=== PATIENT | male | born 1955 ===

== ENCOUNTER 2018-06-03 10:53 | Inpatient (IN) | payer OTHER ==
[~2018-06-03 10:53] MED LIST: Iopamidol 370 76% 100 ML VIAL ONE; Iopamidol 370 76% 50 ML VIAL FS ONE
[2018-06-03] MEDS ORDERED: Heparin 10,000 UNITS/1 ML VIAL ONE (11:00)
[2018-06-03] MEDS ORDERED: Lidocaine 1% (PF) 30 ML VIAL ONE (11:00)
[2018-06-03] MEDS ORDERED: Heparin 5,000 UNITS/ML VIAL ONE (11:05)
[2018-06-03 11:21] LABS: #Basophils 0.1 thou/uL (0.0-0.2); #Eosinphils 0.3 thou/uL (0.0-0.7); #Lymphocytes 2.3 thou/uL (1.20-3.40); #Monocytes 0.4 thou/uL (0.11-0.59); #Neutrophils 3.3 thou/uL (1.40-6.50); %Eosinophils 4.1 % (0.0-10.0); %Lymphocytes 36.4 % (21.0-51.0); %Monocytes 5.8 % (0.0-10.0); %Neutrophils 52.8 % (42.0-75.0); Hemoglobin 14.2 g/dL (14.0-18.0); Mean Corpuscular HGB CONC 34.4 g/dL (32.0-36.0); Mean Corpuscular Hemoglobin 28.1 pg (27.0-31.0); Mean Corpuscular Volume 81.7 fL (78.0-98.0); Mean Platelet Volume 8.2 fL (7.4-10.4); Platelet Count 218 thou/uL (130-400); RBC Distribution Width 12.7 % (11.5-14.5); Red Blood Cell (RBC) Count 5.03 mill/uL (4.70-6.10); White Blood Cell (WBC) Count 6.3 thou/uL (4.8-10.8)
[2018-06-03] MEDS ORDERED: Fentanyl 100 MCG/2 ML VIAL ONE (11:22)
[2018-06-03] MEDS ORDERED: Midazolam HCl 2 mg/2 ml Vial ONE (11:22)
[2018-06-03 11:23] LABS: INR-International Normal Ratio 0.9; PTT 27.2 SEC (22.9-36.1); Prothrombin Time 12.6 SEC (12.0-14.7)
--- NOTE | 2018-06-03 11:33 | RAD ---
PORTABLE CHEST 1 VIEW: Date: Time: 1053 hours HISTORY: Chest pain, myocardial infarction. FINDINGS/IMPRESSION: The heart size is borderline. The lungs are well expanded with mild prominence of the pulmonary vascu larity. No lobar consolidation, pneumothorax, or large effusions are seen. POS: [facility]
[2018-06-03 11:38] LABS: ALT (SGPT) 133 U/L (8-55); AST (SGOT) 77 U/L (5-34); Albumin 4.1 g/dL (3.4-4.8); Alkaline Phosphatase 76 U/L (40-150); Anion Gap 14 mmol/L (10-20); BUN (Urea Nitrogen) 13 mg/dL (8.4-25.7); Bilirubin, Total 0.4 mg/dL (0.2-1.2); Calc. Creatinine Clearance 0 mL/min (70-130); Calcium 9.1 mg/dL (7.8-10.44); Carbon Dioxide 22 mmol/L (23-31); Chloride 106 mmol/L (98-107); Estimated GFR-MDRD 73; Glucose 197 mg/dL (80-115); Potassium 3.6 mmol/L (3.5-5.1); Protein, Total 7.1 g/dL (5.8-8.1); Sodium 138 mmol/L (136-145)
[2018-06-03 11:40] LABS: CKMB 3.6 ng/mL (0-6.6); Troponin I 0.031 ng/mL (< 0.028)
[2018-06-03] MEDS ORDERED: Nitroglycerin 0.4 MG TAB (25 Tab Bottle) SL PRN (11:55)
[2018-06-03] MEDS ORDERED: Acetaminophen/Codeine 30-300mg Tablet PO PRN ×2 (11:55)
[2018-06-03] MEDS ORDERED: traMADol HCl 50 MG TAB PO PRN (11:55)
[2018-06-03] MEDS ORDERED: Heparin 25,000 units/D5W 500 ML ONE (11:56)
[2018-06-03] MEDS ORDERED: Sodium Chloride 0.9% 1,000 ML IV SCH (12:00)
[2018-06-03] MEDS ORDERED: Sodium Chloride 0.9% 200 ML IV SCH (12:00)
--- NOTE | 2018-06-03 12:01 | HP ---
HISTORY: Mr. Mike Cabral is a 62-year-old male who apparently does not have any previous cardiac history. He apparently had chest discomfort and paramedics were called. I am uncertain exactly where he is from at this time, but the helicopter was called to [place] to meet the paramedics. When paramedics arrived, initial EKG showed 3-[address] segment elevation in II , III, V5 through V6 along with reciprocal changes in the other leads, consistent with inferolateral myocardial infarction. Apparently, he had some type of arrhythmia either ventricular fibrillation or tachycardia that required cardioversion at the scene and tried to bag him; however, he apparently awoke and fought off their efforts at bagging. Helicopter was then called to go pick him up in [place]. At the present time, he has a left bundle branch block on his EKG. PAST MEDICAL HISTORY: Apparently hypercholesterolemia is the only history. MEDICATIONS: None. ALLERGIES: None. OPERATIONS: None. SOCIAL HISTORY: He smokes 4-5 cigarettes per day. He rarely drinks. FAMILY HISTORY: Negative for myocardial infarction. REVIEW OF SYSTEMS: Unremarkable. PHYSICAL EXAMINATION: VITAL SIGNS: Blood pressure 128/80, pulse of 100. HEENT: PERRL. NECK: Supple. CHEST: Clear. CARDIAC: S1 and S2 are normal, without any S3, S4 or murmurs. Carotid upstrokes normal, without bruits. ABDOMEN: Normal bowel sounds, without tenderness, organomegaly. EXTREMITIES: Revealed no clubbing, cyanosis or edema. NEUROLOGIC: Grossly intact. SKIN: Warm and dry. LABORATORY DATA: No lab work is back. IMAGING: EKG just shows left bundle branch block. IMPRESSION: 1. Inferolateral ST-elevation myocardial infarction, now with left bundle branch block pattern on EKG. 2. Hypercholesterolemia. 3. Smoker. PLAN: The situation was discussed with the patient through an geodetic engineer. It was recommended that he undergo emergent catheterization and risks of this were discussed including , myocardial infarction, dye reaction, vascular injury , CVA, transfusion, limb loss, renal loss, etc. Also, risk of intervention with PTCA and stent placement were discussed including , myocardial infarction, emergent CABG, restenosis, stent thrombosis, vessel perforation, etc. I am uncertain as to this man's reliability. I feel it would be best to place a bare metal stent if needed. JORGE
[2018-06-03 12:32] VITALS: BMI 29.0
[2018-06-03 12:41] LABS: Hemoglobin A1c 5.8 % (4.0-6.0)
[2018-06-03] MEDS ORDERED: Heparin 25,000 units/D5W 500 ML IVPB SCH (12:45)
[2018-06-03] MEDS ORDERED: Nitroglycerin 50 MG/250 ML BOT 250 ML IVPB SCH (12:45)
[2018-06-03] MEDS ORDERED: Heparin 10,000 UNITS/ 10 ML VIAL SLOW IVP SCH (12:45)
[2018-06-03] MEDS ORDERED: Communication Order-Pharmacy FS SCH (12:47)
[2018-06-03 13:03] LABS: Hemoglobin 13.8 g/dL (14.0-18.0); Platelet Count 217 thou/uL (130-400)
--- NOTE | 2018-06-03 13:25 | CON ---
DATE OF CONSULTATION: 06/03/2018 REQUESTING PHYSICIAN: Dr. Garvin. CHIEF COMPLAINT: Chest pain and shortness of breath. HISTORY OF PRESENT ILLNESS: The patient is one-day shy of 63 years old. He is [place] speaking only , but history is obtained not only from the medical record and caregivers, but through translation by one of the nursing staff who is fluent in [place]. This morning, the patient had onset of chest ascencion n and shortness of breath. The patient had some documented ST elevation in inferolateral leads and a t some point, develops left bundle branch block pattern, which has since resolved. The patient now i s chest pain free, but was taken to the soap slabber for urgent imaging and was found to have severe 2-ve ssel disease. It is most notable for an extremely high-grade lesion in the proximal circumflex that affects both distal circumflex leading to a very large posterolateral marginal and a high obtuse OM1 that is also good sized. He has more modest but significant disease in the proximal portion of his m id LAD and preserved left ventricular systolic function. His right coronary system for all intents a nd purposes is free of disease. PAST MEDICAL HISTORY: Only significant for hyperlipidemia and left inguinal herniorrhaphy. He says he takes medication for his high cholesterol, but it is not clear what that medicine or its dose is. Here he has received aspirin, sedation and local anesthetics for his cardiac catheterization and he is now being heparinized. The patient denies any medical allergies. SOCIAL HISTORY: He admits to 6 cigarettes a day and he rarely drinks alcohol. He is not aware of an y family members who have had myocardial infarctions. REVIEW OF SYSTEMS: Negative for any transient eye, speech, facial or extremity symptoms consistent w ith TIAs or for any claudication symptoms. He denies any shortness of breath other than that associa moise with this morning's event. PHYSICAL EXAMINATION: GENERAL: He is in no distress, heart rate is 61. VITAL SIGNS: Blood pressure 124/82, temperature was 97.2, room air O2 sats were 99%. HEENT: He has no xanthelasma. NECK: No JVD, no carotid bruits. CHEST: Clear to auscultation. CARDIOVASCULAR: He has a regular rate and rhythm. ABDOMEN: Soft and nontender. He has an arterial sheath in place in the right groin. EXTREMITIES: He has easily palpable radial, left femoral and bilateral posterior tibial pulses. The left posterior tibial pulse is a little bit stronger than the right. I was not able to appreciate e ither dorsalis pedis pulse. Capillary refill in the tips of the toes was brisk. He had no clubbing, cyanosis or edema. He has some scattered vitiligo with a large patch on his left roper. He has no o bvious varicosities. NEUROLOGIC: Grossly nonfocal. IMAGING DATA AND LABORATORY DATA: His chest x-ray showed some patchy infiltrates suggestive of pulmo nary edema. There are no obvious aortic knob calcifications. Cardiac silhouette on a portable film appears to be within normal size and limits. He had a white count of 6.3, hemoglobin 14.2, hematocri t 41.1, and platelets 218,000. PT was 12.6, INR 0.9, PTT 27.2. Electrolytes were normal. Glucose w as 197, BUN 13, creatinine 1.04. AST was 77, ALT 133, alkaline phosphatase 76 and bilirubin 0.4. Tr oponin was 0.031. Protein 7.1 and albumin 4.1. Cardiac catheterization showed right dominant system with a long smooth 60%-70% lesion in the LAD, a little bit beyond the first septal hvac engineering technician and a subtotal lesion in large circumflex proximally affecting a high OM as well as a large distal OM. He had minimal luminal irregularity in the right coronary system. LVEF by my estimation was 60% or perh aps even 70%. Aortic pressure was 115/60 with a mean of 84 and LV pressures 110/0 with an EDP of 3, although two other LV pressure readings were 120/6 with an EDP of 15 and 129/13 with an EDP of 19. H eight and weight for purposes of soap slabber sheet were 5 feet 6 and 188.72 pounds. IMPRESSION AND RECOMMENDATIONS: Acute myocardial infarction, currently, stable and extremely high-gr alexia lesion in the proximal circumflex at a bifurcation point as well as significant disease in the LA D. In spite of his LA, he still has very good LV function and should be low risk for surgical revasc ularization which should give him the best opportunity for complete revascularization with a durable approach.
[2018-06-03 13:31] LABS: PTT Greater than 250.0 SEC (22.9-36.1)
--- NOTE | 2018-06-03 14:27 | CON ---
DATE OF CONSULTATION: 06/03/2018 SERVICE: Pulmonary Medicine. REASON FOR CONSULTATION: ICU patient. HISTORY OF PRESENT ILLNESS: Patient is a 62-year-old male with past medical history significant for dyslipidemia. He was in his usual state of health until he had abrupt onset of shortness of breath and chest discomfort while working. He presented to the Emergency Department and was discovered to have an acute myocardial infarction. He was taken for cardiac catheterization, but unfortunately, he had multiple lesions that had 99% blockage. The culprit lesion could not be stented. As such, he was tucked into the ICU on a heparin drip. Surgical consultation was placed and he is being planned for going down to the operating room perhaps first thing in the morning. He came in with chest discomfort. At this point, his chest pain has much improved. He still has a little bit of twinge of discomfort, but nothing nearly as severe as what he experienced previously. He denies any current fevers, chills, nausea or vomiting. Prior to this event, he was in his usual state of health. PAST MEDICAL HISTORY: 1. Coronary artery disease. 2. Dyslipidemia. PAST SURGICAL HISTORY: None. ALLERGIES: None. MEDICATIONS: A list of his inpatient medications were reviewed, but no updates were made at this time. FAMILY HISTORY: Noncontributory. SOCIAL HISTORY: He smokes 1/4 pack on a daily basis and has a greater than 10- pack-year history of smoking. He rarely drinks any alcohol and denies any street drugs. He has no exposure to chemicals or dust asbestos. REVIEW OF SYSTEMS: General, head, ears, eyes, nose, throat, cardiovascular, respiratory, GI, , musculoskeletal, neurologic and skin is negative except as mentioned in the HPI. PHYSICAL EXAMINATION: VITAL SIGNS: Afebrile, pulse 53, blood pressure 110/69, respirations 12, saturation 95% on 2 liters nasal cannula. GENERAL: The patient is awake, alert, no apparent distress. LUNGS: Decent air entry. There is not a prolonged expiratory phase or wheezing currently. HEART: Normal rate and regular. ABDOMEN: Soft, nontender, nondistended. Bowel sounds are positive. MUSCULOSKELETAL: No cyanosis or clubbing. No pitting in the bilateral lower extremities. NEUROLOGIC: Nonfocal. LABORATORY DATA: WBC 6.3, hemoglobin 13.8 and platelets 217,000. INR 0.9. Basic metabolic profile and liver function studies are otherwise unremarkable except for a marginally elevated AST and ALT. ASSESSMENT: 1. Acute myocardial infarction. 2. Coronary artery disease, not amenable to percutaneous coronary intervention. 3. Tobacco abuse. 4. Elevated AST and ALT. PLAN: We will watch the patient in the ICU and continue our supportive measures including antiplatelet medications and anticoagulants. We will trend troponins through time. The patient will likely be going down to the operating room first thing in the morning for an urgent coronary artery bypass graft. Pulmonary or Critical Care will continue to follow along while he remains in this location. 70 minutes have been devoted to this patient in various activities. I personally reviewed all imaging studies and laboratory data noted within this document. For fifty percent of this time, I was interacting with the patient at the bedside or coordinating care with the care team. For the remainder of the time I was immediately available to the patient in the hospital unit. JORGE
[2018-06-03 17:47] LABS: CKMB 78.2 ng/mL (0-6.6); Troponin I 10.057 ng/mL (< 0.028)
[2018-06-03 23:24] LABS: CKMB 81.1 ng/mL (0-6.6); Troponin I 17.325 ng/mL (< 0.028)
[2018-06-04 05:50] LABS: Cardiac Risk 8.2 (Less than 4.5)
[2018-06-04 06:06] LABS: CKMB 68.4 ng/mL (0-6.6); Critical Call CKMBM RESULT DECREASING; Critical Call Chem Troponin I RESULT DECREASING; Troponin I 12.775 ng/mL (< 0.028)
[2018-06-04] MEDS ORDERED: Albumin 5% 500 ML ONE (06:27)
[2018-06-04] MEDS ORDERED: Heparin 10,000 UNITS/1 ML VIAL 30,000 UNITS in Sodium Chloride 0.9% 1,000 ML IVPB SCH (06:45)
[2018-06-04 07:10] LABS: Phosphorus 2.6 mg/dL (2.3-4.7)
[2018-06-04 07:13] LABS: ALT (SGPT) 129 U/L (8-55); AST (SGOT) 120 U/L (5-34); Albumin 3.6 g/dL (3.4-4.8); Alkaline Phosphatase 58 U/L (40-150); Anion Gap 10 mmol/L (10-20); BUN (Urea Nitrogen) 11 mg/dL (8.4-25.7); Bilirubin, Total 0.6 mg/dL (0.2-1.2); Calc. Creatinine Clearance 118 mL/min (70-130); Calcium 8.7 mg/dL (7.8-10.44); Carbon Dioxide 23 mmol/L (23-31); Chloride 109 mmol/L (98-107); Estimated GFR-MDRD Greater than 90; Globulin 2.7 g/dL (2.4-3.5); Glucose 112 mg/dL (80-115); Potassium 3.8 mmol/L (3.5-5.1); Protein, Total 6.3 g/dL (5.8-8.1); Sodium 138 mmol/L (136-145)
[2018-06-04] MEDS ORDERED: Fentanyl 100 MCG/2 ML VIAL ONE (09:11)
[2018-06-04] MEDS ORDERED: Midazolam HCl 5 mg/5 ml Vial ONE ×2 (09:11→09:22)
[2018-06-04] MEDS ORDERED: Dexmedetomidine 200 MCG/2 ML VIAL ONE (09:11)
[2018-06-04] MEDS ORDERED: Vecuronium 10 MG VIAL ONE ×3 (09:11→12:28)
[2018-06-04] MEDS ORDERED: Phenylephrine HCL 10 MG/ML VIAL ONE (09:22)
[2018-06-04] MEDS ORDERED: Nitroglycerin 50 MG/250 ML BOT 0 ML ONE (09:22)
[2018-06-04] MEDS ORDERED: Fentanyl 250 MCG/5 ML VIAL ONE (09:22)
--- NOTE | 2018-06-04 09:58 | PRG ---
DATE OF SERVICE: 06/04/2018 SERVICE: Pulmonary Medicine. INTERVAL HISTORY: The patient is doing fine from a respiratory standpoint. He denies any current nausea, vomiting, fevers or chills. Otherwise, the chest pain that he noted yesterday is doing a little bit better, albeit still there. He describes it is something pulling on his left arm. OBJECTIVE: HEENT: Normocephalic, atraumatic. Sclerae are white, conjunctivae pink. Oral and nasal mucosa is moist without lesions. LUNGS: Decent air entry. No prolonged expiratory phase or wheezing. HEART: Normal rate, regular. ABDOMEN: Soft, nontender, nondistended. Bowel sounds are positive. MUSCULOSKELETAL: No cyanosis or clubbing. No pitting in the bilateral lower extremities. NEUROLOGIC: Grossly nonfocal. LABORATORY DATA: PTT 55. Basic metabolic profile and liver function studies are essentially unremarkable except for troponin is down trending to 12, AST and ALT are gently up trending. ASSESSMENT: 1. Acute myocardial infarction. 2. Coronary artery disease, not amenable to percutaneous coronary intervention. 3. Tobacco abuse. 4. Elevated AST and ALT. DISCUSSION AND PLAN: The patient is going for a coronary artery bypass graft. I will pick him up in the postoperative period to facilitate weaning of mechanical ventilation. Pulmonary and Critical Care will continue to follow along while he remains in ICU. CRITICAL CARE TIME: 30 minutes. JORGE
[2018-06-04] MEDS ORDERED: CEFAZOLIN/Water 2 GM/20 ML SYRINGE ONE (10:04)
[2018-06-04] MEDS ORDERED: Mannitol 12.5 GM/50 ML ONE (12:28)
[2018-06-04] MEDS ORDERED: Nitroglycerin 50 MG/250 ML BOT ONE (12:28)
[2018-06-04] MEDS ORDERED: Heparin 5,000 UNITS/ML VIAL ONE (12:28)
[2018-06-04] MEDS ORDERED: Papaverine 60 MG/2 ML VIAL ONE (12:28)
[2018-06-04] MEDS ORDERED: Calcium Chloride 1 GM/10 ML Abboject SYRINGE ONE (12:28)
[2018-06-04] MEDS ORDERED: Sodium Bicarb 50 MEQ/50 ML VIAL ONE (12:28)
[2018-06-04] MEDS ORDERED: Aminocaproic Acid 5 GM/20 ML VIAL ONE (12:28)
[2018-06-04] MEDS ORDERED: Lidocaine 2% PF 100 mg/5 ml Syringe ONE (12:28)
[2018-06-04] MEDS ORDERED: Cardioplegic Soln 1,000 ML BAG ONE (12:28)
[2018-06-04] MEDS ORDERED: Protamine Sulfate 250 MG/25 ML VIAL ONE (12:28)
[2018-06-04] MEDS ORDERED: Magnesium 5 GM/10 ML VIAL ONE (12:28)
[2018-06-04] MEDS ORDERED: Heparin 30,000 units/30 ml VIAL ONE (12:28)
[2018-06-04] MEDS ORDERED: Potassium Chlo 10 mEq/5 ml Syr ONE (12:28)
[2018-06-04] MEDS ORDERED: PHENYLEPHRINE-NS 100 MCG/ML 10 ML SYRINGE ONE (12:28)
[2018-06-04] MEDS ORDERED: ePHEDrine/0.9% NaCl/PF SYRINGE 50 mg/10 ml ONE (12:28)
[2018-06-04] MEDS ORDERED: HYDROcodone/Acetaminophen 5/325 mg Tablet PO PRN (14:54)
[2018-06-04] MEDS ORDERED: Bisacodyl 5 MG TAB PO PRN (14:54)
[2018-06-04] MEDS ORDERED: Promethazine HCl 25 MG/ML VIAL IM PRN (14:54)
[2018-06-04] MEDS ORDERED: Ondansetron HCl/PF 4 MG/2 ML Vial IVP PRN (14:54)
[2018-06-04] MEDS ORDERED: Acetaminophen 325 MG TAB PO PRN (14:54)
[2018-06-04] MEDS ORDERED: Hetastarch 6% 500 ML 500 ML IVPB PRN (14:54)
[2018-06-04] MEDS ORDERED: hydrALAZINE 20 MG/ML VIAL SLOW IVP PRN (14:54)
[2018-06-04] MEDS ORDERED: Bisacodyl 10 MG SUPP PR PRN (14:54)
[2018-06-04] MEDS ORDERED: Nitroglycerin 50 MG/250 ML BOT 250 ML IVPB PRN (14:54)
[2018-06-04] MEDS ORDERED: Guaifenesin DM 100-10/5 ML UDCUP PO PRN (14:54)
[2018-06-04] MEDS ORDERED: Mag-Al 1200 mg/1200 mg/30 ML UDCUP PO PRN (14:54)
[2018-06-04] MEDS ORDERED: Post-Op Insulin Drip Protocol IVPB ONE (14:54)
[2018-06-04] MEDS ORDERED: Fentanyl 100 MCG/2 ML VIAL SLOW IVP PRN (14:54)
[2018-06-04] MEDS ORDERED: Norepinephrine 8 MG/0.9% NS 250 ML IVPB PRN (14:54)
[2018-06-04] MEDS ORDERED: niCARdipine HCl 25 MG in Sodium Chloride 0.9% 250 ML 240 ML IVPB PRN (14:54)
[2018-06-04] MEDS ORDERED: Dextrose 5% in Water 1,000 ML IV PRN (15:06)
[2018-06-04] MEDS ORDERED: Dextrose 50% Abboject 50 ML SYRINGE SLOW IVP PRN (15:06)
[2018-06-04 15:19] LABS: #Eosinphils 0.1 thou/uL (0.0-0.7); #Lymphocytes 2.1 thou/uL (1.20-3.40); #Monocytes 0.8 thou/uL (0.11-0.59); #Neutrophils 10.3 thou/uL (1.40-6.50); %Basophils 0.2 % (0.0-1.0); %Eosinophils 0.8 % (0.0-10.0); %Lymphocytes 15.7 % (21.0-51.0); %Monocytes 6.1 % (0.0-10.0); %Neutrophils 77.2 % (42.0-75.0); Hemoglobin 12.6 g/dL (14.0-18.0); Mean Corpuscular HGB CONC 34.7 g/dL (32.0-36.0); Mean Corpuscular Hemoglobin 28.6 pg (27.0-31.0); Mean Corpuscular Volume 82.5 fL (78.0-98.0); Mean Platelet Volume 7.7 fL (7.4-10.4); Platelet Count 145 thou/uL (130-400); RBC Distribution Width 12.9 % (11.5-14.5); Red Blood Cell (RBC) Count 4.38 mill/uL (4.70-6.10); White Blood Cell (WBC) Count 13.3 thou/uL (4.8-10.8)
[2018-06-04 15:21] LABS: INR-International Normal Ratio 1.3; PTT 28.5 SEC (22.9-36.1); Prothrombin Time 16.3 SEC (12.0-14.7)
[2018-06-04] MEDS: Insulin Regular 300 UNITS/3 ML VIAL SC PRN ×2 (15:28→20:20)
[2018-06-04 15:35] LABS: Anion Gap 8 mmol/L (10-20); BUN (Urea Nitrogen) 10 mg/dL (8.4-25.7); Calc. Creatinine Clearance 112 mL/min (70-130); Calcium 7.9 mg/dL (7.8-10.44); Carbon Dioxide 22 mmol/L (23-31); Chloride 113 mmol/L (98-107); Estimated GFR-MDRD Greater than 90; Glucose 153 mg/dL (80-115); Potassium 3.9 mmol/L (3.5-5.1); Sodium 139 mmol/L (136-145)
[2018-06-04] MEDS: Sodium Chloride 0.9% 1,000 ML IV SCH (15:36)
[2018-06-04 15:38] LABS: Actual Bicarbonate (HCO3a) 20.6 mEq/L (22-28); CO2 Tension 42.3 mmHg (35.0-45.0); O2 Tension (PaO2) 84.9 mmHg (> 80.0); pH, Arterial 7.31 (7.35-7.45)
[2018-06-04 15:39] LABS: Base Excess (BEa) -5.5 mEq/L (-2.0 to +3.0); Calcium, Ionized 1.1 mmol/L (1.12-1.30); Hemoglobin (Hb) 11.9 g/dL (14.0-18.0)
[2018-06-04 15:41] LABS: ALV-art Gradient 290.025 (0-20); Puncture Site A-LINE
[2018-06-04] MEDS ORDERED: Sodium Bicarb 50 MEQ/50 ML Abboject 8.4% SYRINGE ONE (16:02)
[2018-06-04] MEDS: Potassium Chloride 20 MEQ/100 ML PREMIX BAG IVPB PRN (16:03)
--- NOTE | 2018-06-04 16:08 | RAD ---
CHEST ONE VIEW: 06/04/18 HISTORY: Heart surgery. COMPARISON: 06/03/18. FINDINGS: The cardiac silhouette is magnified by projection. Pulmonary vasculature upper limits of normal. Medi astinum midline with postoperative changes and mediastinal drain now evident. Tip of an endotracheal catheter overlies the thoracic inlet. Left thoracostomy tube is in place. Tip of a left subclavian ce ntral venous catheter overlies the superior vena cava. bus driver/monitor leads overlie the chest. IMPRESSION: Postoperative changes of the mediastinum with lines and tubes as detailed above. POS: [facility]
[2018-06-04] MEDS ORDERED: Sodium Bicarb 50 MEQ/50 ML Abboject 8.4% SYRINGE IVP SCH (16:15)
[2018-06-04 17:35] LABS: Actual Bicarbonate (HCO3a) 23.8 mEq/L (22-28); Base Excess (BEa) -1.9 mEq/L (-2.0 to +3.0); CO2 Tension 44.7 mmHg (35.0-45.0); Hemoglobin (Hb) 11.8 g/dL (14.0-18.0); O2 Tension (PaO2) 72.2 mmHg (> 80.0); pH, Arterial 7.35 (7.35-7.45)
[2018-06-04 17:36] LABS: Puncture Site A-LINE
[2018-06-04 17:37] LABS: ALV-art Gradient 157.125 (0-20)
[2018-06-04] MEDS: Ketorolac Tromethamine 30 MG/ML VIAL IVP SCH (17:48)
--- NOTE | 2018-06-04 18:29 | OP ---
DATE OF PROCEDURE: 06/04/2018 PROCEDURES PERFORMED: Coronary artery bypass grafting x3 with left internal mammary artery to the LA D and reverse greater saphenous vein graft from the aorta to the first obtuse marginal and from the a neda to the second obtuse marginal. PREOPERATIVE DIAGNOSIS: Coronary artery disease, status post ST elevation myocardial infarction. POSTOPERATIVE DIAGNOSIS: Coronary artery disease, status post ST elevation myocardial infarction. SURGEON: Ziyad Huston M.D. FITTING ROOM ASSOCIATE: Dr. Lazcano. ANESTHESIA: General endotracheal anesthesia. INDICATIONS: The patient is a 62-year-old man who presented with chest pain and shortness of breath. He had ST elevation and ruled in for myocardial infarction. Cardiac catheterization demonstrated r ight dominant system with trivial involvement of the right coronary system, but extremely high-grade lesion of the proximal circumflex affecting bifurcation point. He had more modest disease in the LAD . He had preserved left ventricular systolic function. He is now taken to the operating room for re vascularization. FINDINGS: The pump time 76 minutes. Crossclamp time 38 minutes. Good quality JASON. The saphenous v ein was a good quality in the very proximal thigh, it was somewhat small, but in midthigh down to the knee was good size. The LAD was about a 2-2.5 mm vessel, OM1 about 1.5 mm, the OM2 about 2-2.5 mm. There was some scattered intrapericardial adhesions and immediately prior to weaning from bypass, th ere was some transient third-degree AV block. The pericardium was closed. NARRATIVE REPORT: After informed consent was obtained, the patient was taken to the operating room a nd placed in supine position on the operating table. After the induction of general anesthesia and p lacement of left subclavian central line, the patient's torso, groins and lower extremities were prep ped and draped in sterile fashion. Saphenous vein was harvested from the groin to about handbreadth below the knee using a skin bridge technique from the left lower extremity. The vein was prepared fo r use as a graft and the harvest sites were closed in layers of subcutaneous and subcuticular Vicryl. A median sternotomy was performed. The left JASON was mobilized with a pedicle from the level of the xiphoid to the level of subclavian vein through an extrapleural exposure. There were 2 white lesion s of the pleura; however, including one along the apical medial aspect where it was very thin and it is elected ultimately to drain that pleural space. The patient was heparinized. The mammary was lig ated and divided distally. There was good flow through the mammary and the mammary pedicle was tacke d that cart up. Mammary was instilled intraluminally with papaverine solution. The mammary bed was inspected for hemostasis. The JASON retractor was placed with an Ankeney. The pericardium was opened and marsupialized. The aorta was palpated and was soft. A double concentric pursestring of 2-0 Ethi morrison was placed in the ascending aorta just beyond the pericardial reflection and a single pursestrin g was placed in the right atrial appendage. The aortic and venous cannula were inserted and secured by the pursestrings. Cardiopulmonary bypass was instituted and the patient was systemically cooled. The heart was examined. The vessels to be bypassed were identified. A longitudinal slit was made i n the pericardium anterior to the left phrenic nerve through which the mammary pedicle could be passe d. The plane between the aorta and the pulmonary artery was developed and the aortic crossclamp was applied and cardioplegia was administered through an aortic root needle with rest been achieved. Att ention was turned to the first obtuse marginal as it was the smallest of the vessels to be grafted an d the most proximal portion of the saphenous vein was actually smaller caliber than that more distall y. Saphenous vein was anastomosed their end-to-side with running Prolene suture and the anastomosis tested by flushing cold cardioplegic down the graft. The graft was trimmed to rough length getting b eyond the transition point in size and then the remaining vein was used to graft the second obtuse ma rginal which was a larger vessel running the posterolateral distribution. The LAD was then opened an d the mammary was anastomosed to it with running 7-0 Prolene, and the mammary pedicle tacked to the e picardium. The aortic crossclamp was placed with partial occluding clamp and aortotomy was made in t he ascending aorta with a scalpel and punch incorporating the root needle site for one of the aortoto mies. The OM graft 1 graft was anastomosed to the more proximal aortotomy and the OM2 graft was anas tomosed to the more distal aortotomy. The partial occluding clamp was removed and the vein grafts de aired and the bulldogs were removed from it. The anastomoses were inspected for hemostasis. A poste rior pericardial and left pleural drains brought out through separate incisions and secured with sutu re. While sewing the proximal anastomoses, the patient was asystolic, but would contract with tactil e stimulation. A temporary ventricular pacing wires were placed after construction of the first prox imal anastomosis and pacing begun. After completing the proximal anastomoses, the patient was no eugenio jose g asystolic, but was in a third-degree block which resolved by the time the ventricular pacing wire s were passed and atrial pacing wires were placed and passed. The posterior pericardial drain and a left pleural drain were placed. The patient was weaned from bypass. The aortic and venous cannulas were removed and the pursestring secured. Protamine was administered. Once hemostasis was adequate, an anterior mediastinal drain was placed and the pericardium was easily closed with running Vicryl. The sternum was reapproximated with #7 stainless steel wires. The fascia was closed over the wires with heavy Vicryl. Subcutaneous tissue was irrigated and reapproximated. The skin was closed with V icryl subcuticular stitch. The wounds were dressed and the patient was taken to the intensive care u [facility] in stable condition.
[2018-06-04] MEDS: Atorvastatin Calcium 20 MG TAB PO SCH (20:22)
[2018-06-04] MEDS ORDERED: Famotidine/PF 20 mg/2ml Vial SLOW IVP SCH (21:00)
[2018-06-04 21:21] LABS: Hemoglobin 11.3 g/dL (14.0-18.0)
[2018-06-04 21:32] LABS: Potassium 4.5 mmol/L (3.5-5.1)
[2018-06-04] MEDS: HYDROcodone/Acetaminophen 5/325 mg Tablet PO PRN (22:29)
[2018-06-05] MEDS: Ketorolac Tromethamine 30 MG/ML VIAL IVP SCH ×3 (00:23→12:07)
[2018-06-05] MEDS: Insulin Regular 300 UNITS/3 ML VIAL SC PRN ×4 (00:28→21:13)
[2018-06-05 04:21] LABS: #Lymphocytes 1.4 thou/uL (1.20-3.40); #Monocytes 0.8 thou/uL (0.11-0.59); #Neutrophils 5.8 thou/uL (1.40-6.50); %Basophils 0.5 % (0.0-1.0); %Eosinophils 0.4 % (0.0-10.0); %Lymphocytes 17.7 % (21.0-51.0); %Monocytes 10.4 % (0.0-10.0); %Neutrophils 71.1 % (42.0-75.0); Hemoglobin 9.8 g/dL (14.0-18.0); Mean Corpuscular HGB CONC 34.3 g/dL (32.0-36.0); Mean Corpuscular Hemoglobin 28.4 pg (27.0-31.0); Mean Corpuscular Volume 82.8 fL (78.0-98.0); Mean Platelet Volume 7.8 fL (7.4-10.4); Platelet Count 154 thou/uL (130-400); Red Blood Cell (RBC) Count 3.44 mill/uL (4.70-6.10); White Blood Cell (WBC) Count 8.1 thou/uL (4.8-10.8)
[2018-06-05] MEDS: Sodium Chloride 0.9% 1,000 ML IV SCH ×2 (04:22→17:42)
[2018-06-05 04:36] LABS: Anion Gap 9 mmol/L (10-20); BUN (Urea Nitrogen) 18 mg/dL (8.4-25.7); Calc. Creatinine Clearance 102 mL/min (70-130); Calcium 8.5 mg/dL (7.8-10.44); Carbon Dioxide 26 mmol/L (23-31); Chloride 111 mmol/L (98-107); Estimated GFR-MDRD 89; Glucose 137 mg/dL (80-115); Potassium 4.1 mmol/L (3.5-5.1); Sodium 142 mmol/L (136-145)
[2018-06-05] MEDS: HYDROcodone/Acetaminophen 5/325 mg Tablet PO PRN (04:57)
[2018-06-05] MEDS: Metoclopramide HCl 10 MG/2 ML VIAL IVP SCH ×3 (08:11→19:45)
[2018-06-05] MEDS: Aspirin 325 MG TAB PO SCH (08:12)
[2018-06-05] MEDS: Famotidine 20 MG TAB PO SCH ×2 (08:12→21:01)
--- NOTE | 2018-06-05 08:54 | PRG ---
DATE OF SERVICE: 06/05/2018 Mr. Cabral is extubated, he has some chest soreness. PHYSICAL EXAMINATION: VITAL SIGNS: The pulse is 88, it is sinus. Blood pressure 107/56. LUNGS: Clear. CARDIAC: Normal S1, normal S2. ABDOMEN: The abdomen is somewhat tender. EXTREMITIES: There is mild to moderate peripheral edema. ASSESSMENT: 1. Status post myocardial infarction. 2. Status post coronary bypass grafting. PLAN: 1. Will need diuretics as tolerated. 2. Beta blockers as tolerated at a later time. 3. Continue supportive care.
[2018-06-05] MEDS: Simethicone Chewable 80 MG TAB PO SCH ×4 (08:59→22:29)
--- NOTE | 2018-06-05 09:32 | RAD ---
PORTABLE CHEST: DATE: 06/05/18. PROVIDED CLINICAL HISTORY: Post open heart. FINDINGS: Comparison 06/04/18. Interval extubation. Left-sided chest tubes, mediastinal drains, and left-sided central line are again noted in similar positions. There is consolidation at the medial left lung ba se. There is blunting of the left costophrenic angle. There is no evidence for pneumothorax. IMPRESSION: 1. Interval extubation. 2. Consolidation at the medial left lung base may reflect atelectasis. Followup is recommended. POS: [facility]
--- NOTE | 2018-06-05 10:12 | PRG ---
DATE OF SERVICE: 06/05/2018 SERVICE: Pulmonary Medicine. INTERVAL HISTORY: The patient did really well yesterday. He tolerated extubation just fine. He is breathing comfortably this morning. That being said, he has increasing abdominal distention. He has got pain in the belly associated with that distention. He got some Reglan and simethicone. Otherwise , there were no events overnight. PHYSICAL EXAMINATION: VITAL SIGNS: Afebrile, pulse 94, blood pressure 165/79, respirations 17, saturation 93% on 3 liters nasal cannula. GENERAL: The patient is awake, alert, no apparent distress. LUNGS: Decent air entry. Dependent crackles are present. No prolonged expiratory phase or wheezing is appreciated. HEART: Normal rate, regular. ABDOMEN: Distended. Bowel sounds are hypoactive. There is diffuse tenderness to palpation with no rebound. Tympany is present with percussion. MUSCULOSKELETAL: No cyanosis or clubbing. There is no pitting in the bilateral lower extremities. Pulses in the feet are roughly symmetric. GENITOURINARY: Rader catheter in place. NEUROLOGIC: Grossly nonfocal. LABORATORY DATA: Basic metabolic profile is essentially unremarkable with a creatinine of 0.87. CBC is also unremarkable except for hemoglobin that dropped off to 9.8. IMAGING: Chest x-ray demonstrates left-sided pleural parenchymal changes. There is a left side thoracostomy tube in place as well as two mediastinal drains. ASSESSMENT: 1. Acute hypoxic respiratory failure. 2. Acute myocardial infarction. 3. Coronary artery disease, severe, status post coronary artery bypass graft x3 vessels. 4. Tobacco abuse. 5. Elevated AST and ALT, resolved. 6. Ileus. DISCUSSION AND PLAN: The patient is doing fine from a respiratory standpoint. We are working on his abdominal distention. The sheath was pulled this morning and so he is confined to bed, but hopefully, once he starts to mobilize, we will move some air and he will start to feel better. If the belly distention becomes worse, NG tube and imaging will be considered. He will remain in the ICU for today. JORGE
--- NOTE | 2018-06-05 17:00 | EKG ---
Test Reason : Blood Pressure : / mmHG Vent. Rate : 062 BPM Atrial Rate : 062 BPM P-R Int : 164 ms QRS Dur : 088 ms QT Int : 430 ms P-R-T Axes : 048 056 035 degrees QTc Int : 436 ms Normal sinus rhythm Nonspecific ST and T wave abnormality Abnormal ECG When compared with ECG of 03-JUN-2018 10:57, (Unconfirmed) Left bundle branch block is no longer Present Confirmed by DR. Alena GAONA (3) on 06/05/2018 5:00:16 PM Referred By: POPEYE Confirmed By:DR. Alena GAONA
--- NOTE | 2018-06-05 17:02 | EKG ---
Test Reason : Blood Pressure : / mmHG Vent. Rate : 084 BPM Atrial Rate : 084 BPM P-R Int : 142 ms QRS Dur : 138 ms QT Int : 454 ms P-R-T Axes : 077 059 242 degrees QTc Int : 536 ms Poor data quality, interpretation may be adversely affected Normal sinus rhythm Left bundle branch block Abnormal ECG When compared with ECG of 04-JUN-2018 07:36, Previous ECG has undetermined rhythm, needs review Left bundle branch block is now Present Confirmed by DR. Alena GAONA (3) on 06/05/2018 5:01:52 PM Referred By: POPEYE Confirmed By:DR. Alena GAONA
--- NOTE | 2018-06-05 17:03 | RAD ---
ONE VIEW ABDOMEN: 06/05/18 HISTORY: Distention. COMPARISON: None. FINDINGS: Multiple air filled loops of small bowel are noted. There is still air and fecal material in the colo n. Correlate for a developing ileus versus a partially/early obstructive process. Consider CT. No pne umoperitoneum on the supine projection. Overlying lines and tubes are noted. IMPRESSION: Further evaluation with abdomen CT is recommended. Possibility of a developing ileus versus a early/p artial obstructive process cannot be excluded. POS: [facility]
[2018-06-05] MEDS: Fentanyl 100 MCG/2 ML VIAL SLOW IVP PRN ×2 (20:49→23:07)
[2018-06-05] MEDS: Atorvastatin Calcium 20 MG TAB PO SCH (21:01)
[2018-06-06] MEDS: Sodium Chloride 0.9% 1,000 ML IV SCH ×2 (00:52→13:06)
[2018-06-06] MEDS: Metoclopramide HCl 10 MG/2 ML VIAL IVP SCH (00:52)
[2018-06-06] MEDS: Fentanyl 100 MCG/2 ML VIAL SLOW IVP PRN ×2 (01:11→09:36)
[2018-06-06] MEDS: Simethicone Chewable 80 MG TAB PO SCH ×4 (03:52→20:20)
[2018-06-06] MEDS: Insulin Regular 300 UNITS/3 ML VIAL SC PRN (04:08)
[2018-06-06 04:29] LABS: #Lymphocytes 1.2 thou/uL (1.20-3.40); #Monocytes 0.9 thou/uL (0.11-0.59); %Basophils 0.4 % (0.0-1.0); %Eosinophils 0.5 % (0.0-10.0); %Lymphocytes 13.1 % (21.0-51.0); %Monocytes 9.8 % (0.0-10.0); %Neutrophils 76.2 % (42.0-75.0); Hemoglobin 9.2 g/dL (14.0-18.0); Mean Corpuscular Hemoglobin 28.4 pg (27.0-31.0); Mean Corpuscular Volume 83.5 fL (78.0-98.0); Mean Platelet Volume 7.8 fL (7.4-10.4); Platelet Count 169 thou/uL (130-400); Red Blood Cell (RBC) Count 3.25 mill/uL (4.70-6.10); White Blood Cell (WBC) Count 9.1 thou/uL (4.8-10.8)
[2018-06-06 05:28] LABS: Anion Gap 11 mmol/L (10-20); BUN (Urea Nitrogen) 23 mg/dL (8.4-25.7); Calc. Creatinine Clearance 93 mL/min (70-130); Carbon Dioxide 26 mmol/L (23-31); Chloride 106 mmol/L (98-107); Estimated GFR-MDRD 78; Glucose 161 mg/dL (80-115); Sodium 139 mmol/L (136-145)
[2018-06-06] MEDS: Potassium Chloride 20 MEQ/100 ML PREMIX BAG IVPB PRN (09:38)
[2018-06-06] MEDS: Famotidine 20 MG TAB PO SCH ×2 (09:41→20:20)
[2018-06-06] MEDS: Aspirin 325 MG TAB PO SCH (09:41)
--- NOTE | 2018-06-06 09:56 | RAD ---
FRONTAL VIEW CHEST: COMPARISON: Previous day. CLINICAL HISTORY: Status post open heart surgery. FINDINGS: Placement of enteric catheter since the prior exam. Left thoracostomy tube, left subclavian venous c atheter persist. Numerous extrinsic artifacts overlying the chest and upper abdomen otherwise obscur e detail. The lungs are grossly stable, as is the enlarged cardiomediastinal silhouette. There marbin ins vascular congestion. IMPRESSION: 1. Interval placement of enteric catheter. 2. Congestive heart failure. 3. Persistent medial left basilar consolidation with superimposed vascular congestion. POS: [facility]
--- NOTE | 2018-06-06 14:03 | PRG ---
DATE OF SERVICE: 06/06/2018 SUBJECTIVE: Mr. Cabral is complaining of chest discomfort with respirations. He also is complaining of abdominal bloating. He has an NG tube in place. PHYSICAL EXAMINATION: VITAL SIGNS: He is afebrile, heart rate 75, respiratory rate 22, blood pressure 119/75. His fentanyl makes him anxious. We will try morphine. LUNGS: Clear. HEART: Regular rhythm. He has anterior chest noise because of his chest tubes. ABDOMEN: Soft and tympanitic. He has no guarding. EXTREMITIES: Without asymmetry or edema. NEUROLOGIC: Grossly nonfocal. Intake and output is negative 100. IMAGING DATA: Chest radiograph reviewed by me today shows only a faint increase in interstitial markings. His left subclavian line tip is in the right atrium. Sternal wires appeared to be intact. Chest tubes are in proper position. IMPRESSION AND PLAN: 1. Status post coronary bypass grafting. Hopefully, he is close to have his chest tubes removed for comfort. For now, I will add morphine and discontinue the fentanyl since it makes him anxious. 2. Postop ileus. He will continue with NG suction for now and will make sure to remain in the Critical Care Unit in my opinion. Critical care time 30 minutes. KARLYD
[2018-06-06] MEDS ORDERED: Atorvastatin Calcium 40 MG TAB PO SCH (21:00)
[2018-06-07] MEDS: Simethicone Chewable 80 MG TAB PO SCH ×2 (01:41→09:15)
[2018-06-07 04:56] LABS: #Eosinphils 0.2 thou/uL (0.0-0.7); #Lymphocytes 1.6 thou/uL (1.20-3.40); #Monocytes 0.7 thou/uL (0.11-0.59); #Neutrophils 4.7 thou/uL (1.40-6.50); %Basophils 0.7 % (0.0-1.0); %Eosinophils 2.1 % (0.0-10.0); %Lymphocytes 21.9 % (21.0-51.0); %Monocytes 9.7 % (0.0-10.0); %Neutrophils 65.6 % (42.0-75.0); Hemoglobin 7.7 g/dL (14.0-18.0); Mean Corpuscular HGB CONC 33.6 g/dL (32.0-36.0); Mean Corpuscular Hemoglobin 28.3 pg (27.0-31.0); Mean Corpuscular Volume 84.3 fL (78.0-98.0); Mean Platelet Volume 7.7 fL (7.4-10.4); Platelet Count 149 thou/uL (130-400); White Blood Cell (WBC) Count 7.2 thou/uL (4.8-10.8)
[2018-06-07 05:13] LABS: Anion Gap 8 mmol/L (10-20); BUN (Urea Nitrogen) 20 mg/dL (8.4-25.7); Calc. Creatinine Clearance 117 mL/min (70-130); Calcium 8.5 mg/dL (7.8-10.44); Carbon Dioxide 28 mmol/L (23-31); Chloride 106 mmol/L (98-107); Estimated GFR-MDRD Greater than 90; Glucose 135 mg/dL (80-115); Potassium 3.9 mmol/L (3.5-5.1); Sodium 138 mmol/L (136-145)
[2018-06-07] MEDS: Sodium Chloride 0.9% 1,000 ML IV SCH (05:33)
[2018-06-07] MEDS: Potassium Chloride 20 MEQ/100 ML PREMIX BAG IVPB PRN (05:49)
[2018-06-07] MEDS: Famotidine 20 MG TAB PO SCH ×2 (09:15→20:28)
[2018-06-07] MEDS: Aspirin 325 MG TAB PO SCH (09:15)
[2018-06-07] MEDS ORDERED: Mag-Al 1200 mg/1200 mg/30 ML UDCUP PO PRN (10:12)
[2018-06-07] MEDS ORDERED: Bisacodyl 5 MG TAB PO PRN (10:12)
[2018-06-07] MEDS ORDERED: Guaifenesin DM 100-10/5 ML UDCUP PO PRN (10:12)
[2018-06-07] MEDS ORDERED: Acetaminophen 325 MG TAB PO PRN (10:12)
[2018-06-07] MEDS ORDERED: Nitroglycerin 0.4 MG TAB (25 Tab Bottle) SL PRN (10:12)
[2018-06-07] MEDS ORDERED: Bisacodyl 10 MG SUPP PR PRN (10:12)
[2018-06-07] MEDS ORDERED: Ondansetron HCl/PF 4 MG/2 ML Vial IVP PRN (10:12)
[2018-06-07] MEDS ORDERED: HYDROcodone/Acetaminophen 5/325 mg Tablet PO PRN ×2 (10:12)
[2018-06-07] MEDS ORDERED: Mineral Oil ENEMA PR PRN (10:12)
[2018-06-07] MEDS ORDERED: Furosemide 40 MG TAB PO SCH (10:45)
[2018-06-07] MEDS ORDERED: Furosemide 40 MG/4 ML VIAL SLOW IVP SCH (14:00)
--- NOTE | 2018-06-07 19:16 | PRG ---
DATE OF SERVICE: 06/07/2018 Mr. Cabral states he is feeling great. Morphine made a huge difference in his discomfort. Yesterda y his chest tubes are out. PHYSICAL EXAMINATION: VITAL SIGNS: He is afebrile. Heart rate is in the 90s, respiratory rate is in the teens, oximetry i s 92-96 on room air, blood pressure 132/73. GENERAL: He is walking in the [place] with minimal assistance. LUNGS: Clear. HEART: Regular rhythm. ABDOMEN: Soft. LABORATORY DATA: White count 7.2, hemoglobin 7.7, platelets 149. Sodium 138, potassium 3.9, chlorid e 106, bicarbonate 28, BUN 20, creatinine 0.78. IMPRESSION: 1. Status post coronary artery bypass grafting. 2. Status post myocardial infarction. 3. Blood loss anemia. 4. Status post placement of an NG tube for an ileus, clinically doing much better. 5. Atelectasis. PLAN: Continue supportive care, physical therapy, wound care, etc. He is stable to move out from [facility] Critical Care Unit.
[2018-06-07] MEDS ORDERED: Atorvastatin Calcium 20 MG TAB PO SCH (21:00)
[2018-06-07] MEDS ORDERED: Naproxen 500 MG TAB PO SCH (23:45)
[2018-06-07] MEDS ORDERED: Melatonin 3 MG TAB PO PRN (23:50)
[2018-06-08] MEDS: Simethicone Chewable 80 MG TAB PO SCH ×3 (00:06→15:38)
[2018-06-08] MEDS ORDERED: Potassium Chloride 10 MEQ TAB PO SCH (08:00)
[2018-06-08] MEDS: ALPRAZolam 0.25 MG TAB PO PRN ×2 (08:08→17:29)
[2018-06-08] MEDS: Famotidine 20 MG TAB PO SCH (08:10)
[2018-06-08] MEDS ORDERED: Aspirin 325 mg Enteric Coated Tablet PO SCH (09:00)
[2018-06-08] MEDS ORDERED: Furosemide 40 MG TAB PO SCH (09:00)
--- NOTE | 2018-06-08 10:03 | PRG ---
DATE OF SERVICE: 06/08/2018 SERVICE: Pulmonary Medicine INTERVAL HISTORY: The patient is doing great from a respiratory standpoint. He denies any current c hest pain, nausea, vomiting, fevers or chills. Otherwise, there has been no interval change to his c ondition. He is on room air. He is breathing comfortably. His biggest complaints are sleep related . He is actually interested in going home as soon as possible so he can get back to his normal routi ne. PHYSICAL EXAMINATION: VITAL SIGNS: Afebrile, pulse 91, blood pressure 116/62, respirations 18, saturation 94% on room air. GENERAL: The patient is awake, alert, no apparent distress. LUNGS: Decent air entry. Dependent crackles are present. HEART: Normal rate, regular. ABDOMEN: Soft, nontender, nondistended. Bowel sounds are positive. MUSCULOSKELETAL: No cyanosis or clubbing. There is 1+ pitting in the bilateral lower extremities. NEUROLOGIC: Grossly nonfocal. ASSESSMENT: 1. Acute hypoxic respiratory failure, resolved. 2. Acute myocardial infarction. 3. Coronary artery disease, status post coronary artery bypass graft x3 vessels. 4. Tobacco abuse. 5. Ileus, resolved. PLAN: The patient will get 1 dose of Lasix today. At this point, he has no further requirements for inpatient Pulmonary or Critical Care opinion. Pulmonary will sign off. Please call with additional questions or concerns.
[2018-06-08] MEDS ORDERED: Naproxen 500 MG TAB PO PRN (13:14)
[2018-06-08 15:43] VITALS: BP 123/65; TEMP 97.9
[2018-06-08] MEDS ORDERED: Ferrous Sulfate 325 MG TAB PO SCH (17:00)
[2018-06-08] MEDS ORDERED: Atorvastatin Calcium 40 MG TAB PO SCH (21:00)
--- NOTE | 2018-06-08 22:22 | DIS ---
DATE OF ADMISSION: 06/03/2018 DATE OF DISCHARGE: 06/08/2018 PRINCIPAL DIAGNOSIS: Coronary artery disease with ST elevation myocardial infarction. PROCEDURES PERFORMED: Cardiac catheterization in 06/03/2018, coronary artery bypass grafting x3 with left internal mammary artery to the LAD and reverse saphenous vein graft from the aorta to the first obtuse marginal and to the second obtuse marginal on 06/04/2018. HISTORY OF PRESENT ILLNESS AND HOSPITAL COURSE: The patient is a 62-year-old man who developed chest pain and shortness of breath. He had inferolateral ST elevation on his EKG by EMS and he had episod ic episodes of left bundle branch block. Cardiac catheterization demonstrated severe 2-vessel kruger ry disease. He had trivial luminal irregularity in his right coronary system. A significant lesion in the LAD, a little beyond the first septal home theatre technician, but a very high grade nearly subtotal lesion at a bifurcation point in the proximal circumflex. He had preserved left ventricular systolic funct ion. He was placed on heparin overnight and the next day underwent coronary revascularization. Preo peratively, on no beta blockers, he had a heart rate of 60 and initially after completing revasculari zation, he was asystolic and then transitioned to a third-degree AV block prior to regaining a sinus rhythm that was weanable from bypass. For that reason, beta blockers were held in the perioperative period. He was extubated day afternoon of surgery. He did develop an ileus overnight that resolved. He has had a bit of nervousness and dysphoria that he attributes to [place]. He is now doing better. Will be discharged home now on an aspirin a day and Lipitor 40 mg in the evening. He has taken Nap rosyn with good result in the past and is asking if it is okay to take that for pain. I have recomme nded over the counter naproxen. I am going to write a prescription for a small quantity of hydrocodo ne 5, which he can break in half if necessary for breakthrough pain and about a week's worth of 0.25 mg of Xanax in the evening if he is still having too much residual nervousness to be able to go to [facility]. His hemoglobin drifted down into the upper sevens, so he is to start iron supplementation. I w ill plan on seeing him in the office in roughly 1-2 weeks' time. Follow up with Dr. Garvin will be per him.
== END 2018-06-08 18:27 | disposition home or self-care (01) | DRG 233 ==
LOC: ERS 10:53 → CCU 11:53 → 2NO 06-07 12:14
PROVIDERS: ADMIT Internal Medicine Cardiovascular Disease; ATTEND Internal Medicine Cardiovascular Disease
PROC: 4A023N7 Measurement of Cardiac Sampling and Pressure, Left Heart, Percutaneous Approach (ICD-10-PCS; 2018-06-03)
PROC: B215YZZ Fluoroscopy of Left Heart using Other Contrast (ICD-10-PCS; 2018-06-03)
PROC: B211YZZ Fluoroscopy of Multiple Coronary Arteries using Other Contrast (ICD-10-PCS; 2018-06-03)
PROC: 02100A9 Bypass Coronary Artery, One Artery from Left Internal Mammary with Autologous Arterial Tissue, Open Approach (ICD-10-PCS; principal; 2018-06-04)
PROC: 021109W Bypass Coronary Artery, Two Arteries from Aorta with Autologous Venous Tissue, Open Approach (ICD-10-PCS; 2018-06-04)
PROC: 06BQ0ZZ Excision of Left Saphenous Vein, Open Approach (ICD-10-PCS; 2018-06-04)
DX: I21.19 ST elevation (STEMI) myocardial infarction involving other coronary artery of inferior wall (principal); I49.01 Ventricular fibrillation; J96.01 Acute respiratory failure with hypoxia; K56.7 Ileus, unspecified; D62 Acute posthemorrhagic anemia; J98.11 Atelectasis; T40.2X5A Adverse effect of other opioids, initial encounter; Y92.239 Unspecified place in hospital as the place of occurrence of the external cause; R45.0 Nervousness; I25.10 Atherosclerotic heart disease of native coronary artery without angina pectoris; I44.7 Left bundle-branch block, unspecified; F17.210 Nicotine dependence, cigarettes, uncomplicated; E78.5 Hyperlipidemia, unspecified; Z79.899 Other long term (current) drug therapy; Z87.19 Personal history of other diseases of the digestive system
CPT/HCPCS: 36415; 36416; 36430; 71045; 74018; 80048; 80053; 80061; 82553; 82805; 83036; 83735; 84100; 84484; 85025; 85347; 85610; 85730; 86850; 86900; 86901; 93005; 93010; 93458; 93798; 94002; 94150; 94760; 96374; 99152; A4216; C1769; J1644; J1815; J1885; J1940; J2001; J2150; J2250; J2270; J2370; J2405; J2440; J2720; J2765; J3010; J3475; J3480; J7050; P9045; S0017